=== PATIENT | female | born 1960 | race Caucasian/White ===

== ENCOUNTER 2018-06-24 08:43 | Day surgery (SDC) | payer BC ==
[2018-06-20 13:04] VITALS: BMI 30.7
[~2018-06-24 08:43] MED LIST: LACTATED RINGERS 1,000 ML IV SCH
[2018-06-24 09:20] VITALS: TEMP 98.6
[2018-06-24] MEDS ORDERED: LIDOCAINE 1% 20 ML VIAL (10MG/ML) FOR IV START INTRADERMA ONE (09:21)
[2018-06-24] MEDS ORDERED: PROPOFOL 10 MG/ML 20 ML VIAL IV ONE (10:29)
[2018-06-24 10:56] VITALS: RESP 18
--- NOTE | 2018-06-24 10:57 | P.PCN ---
Date of Procedure: 06/24/18 Procedure(s) Performed: Procedure: Colonoscopy and biopsy. Preoperative diagnosis: Screening for neoplasia. Postoperative diagnosis: 1. Sigmoid diverticulosis with no evidence of acute diverticulitis or strictures. 2. Diminutive rectal polyp biopsied but no large polyps or cancer. Preparation: HalfLytely prep. Sedation: Was provided by anesthesia. Brief clinical history: The patient is a 57-year-old female who is scheduled for this evaluation for screening for neoplasia age being her risk factor. No family history of colon cancer. She has no abdominal complaints, bleeding or anemia. This would be her first colonoscopy. Procedure: With the patient on her left lateral decubitus position and after informed consent and adequate sedation, the perianal area was inspected and it did not show any fissures or fistulas. There were no masses felt on digital rectal examination. The Olympus CF a 190L video colonoscope was then inserted in the rectum and the usual fashion and advanced to the cecum. There were several diverticular orifices seen scattered in the sigmoid but I saw no evidence of acute diverticulitis or strictures. The mucosa appeared healthy. A diminutive polyp was seen in the rectum which was biopsied but there were no large polyps or cancer. I retroflexed the endoscope in the rectum before the endoscope was withdrawn. The patient tolerated the procedure well. Plan: The patient was reassured. Discussed dietary measures. I anticipate repeating this exam in 10 years depending on the biopsy results.
[2018-06-24 11:32] VITALS: BP 119/75; PULSE 57
== END 2018-06-24 12:00 | disposition home or self-care (01) ==
LOC: ORWHC2ENDO 08:43
DX: Z12.11 Encounter for screening for malignant neoplasm of colon (principal); K62.1 Rectal polyp; K57.30 Diverticulosis of large intestine without perforation or abscess without bleeding; I10 Essential (primary) hypertension; E78.5 Hyperlipidemia, unspecified; F32.9 Major depressive disorder, single episode, unspecified; F41.9 Anxiety disorder, unspecified; F17.210 Nicotine dependence, cigarettes, uncomplicated; Z79.899 Other long term (current) drug therapy; Z90.49 Acquired absence of other specified parts of digestive tract
CPT/HCPCS: 88305; 45380; J2704

== ENCOUNTER → 2018-08-07 | Outpatient (CLI) | payer BC ==
--- NOTE | 2018-08-09 10:09 | MM ---
Reason for exam: screening (asymptomatic). Last mammogram was performed 4 years and 11 months ago. History: Patient is postmenopausal. Physical Findings: A clinical breast exam by your physician is recommended on an annual basis and results should be correlated with mammographic findings. MG 3D Screening Mammo W/Cad Bilateral CC and MLO view(s) were taken. Prior study comparison: September 04, 2013, bilateral digital screening mammo w/CAD. There are scattered fibroglandular densities. No significant changes when compared with prior studies. ASSESSMENT: Negative, BI-RAD 1 RECOMMENDATION: Routine screening mammogram of both breasts in 1 year.
== END | disposition home or self-care (01) ==
LOC: RADMAMWWP 15:07
PROVIDERS: ATTEND Family Medicine
DX: Z12.31 Encounter for screening mammogram for malignant neoplasm of breast (principal)
CPT/HCPCS: 77063; 77067

== ENCOUNTER → 2021-06-20 | Outpatient (CLI) | payer BC ==
--- NOTE | 2021-06-21 10:34 | MM ---
Reason for exam: screening (asymptomatic). Last mammogram was performed 2 years and 10 months ago. History: Patient is postmenopausal. Physical Findings: A clinical breast exam by your physician is recommended on an annual basis and results should be correlated with mammographic findings. MG 3D Screening Mammo W/Cad Bilateral CC and MLO view(s) were taken. Prior study comparison: August 07, 2018, bilateral MG 3d screening mammo w/cad. September 04, 2013, bilateral digital screening mammo w/CAD. There are scattered fibroglandular densities. There is no discrete abnormality. No significant changes when compared with prior studies. ASSESSMENT: Negative, BI-RAD 1 RECOMMENDATION: Routine screening mammogram of both breasts in 1 year.
== END | disposition home or self-care (01) ==
LOC: RADMAMWWP 15:08
PROVIDERS: ATTEND Family Medicine
DX: Z12.31 Encounter for screening mammogram for malignant neoplasm of breast (principal)
CPT/HCPCS: 77063; 77067

== ENCOUNTER → 2022-07-03 | Outpatient (CLI) | payer BC ==
[2022-07-03 18:24] LABS: Anion Gap 8.8 mmol/L (10.00-18.00); Carbon Dioxide 29.6 mmol/L (20.0-27.5); Potassium 4.1 mmol/L (3.5-5.5)
[2022-07-03 18:30] LABS: Basophils # (A) 0.06 X 10*3/uL (0.00-0.10); Eosinophils # (A) 0.14 X 10*3/uL (0.04-0.35); Eosinophils % (A) 2.3 %; Immature Grans, Automated 0.2 %; Lymphocytes # (A) 1.57 X 10*3/uL (0.90-5.00); Lymphocytes % (A) 26.1 %; MCHC 32.6 g/dL (32.0-37.0); Mean Platelet Volume 10.1 fL (9.5-12.2); Monocytes # (A) 0.38 X 10*3/uL (0.20-1.00); Monocytes % (A) 6.3 %; NRBC Per 100 WBC 0 /100 WBCS (0.0-0.0); Neutrophils # (A) 3.85 X 10*3/uL (1.80-7.70); Neutrophils % (A) 64.1 %; Platelet Count 275 X 10*3/uL (140-440); RDW 13.4 % (11.5-14.5); WBC 6.01 X 10*3/uL (4.50-10.00)
== END | disposition home or self-care (01) ==
LOC: LABPAT 11:04
PROVIDERS: ATTEND Orthopaedic Surgery Hand Surgery
DX: Z01.818 Encounter for other preprocedural examination (principal); I45.10 Unspecified right bundle-branch block; M65.332 Trigger finger, left middle finger; R94.31 Abnormal electrocardiogram [ECG] [EKG]
CPT/HCPCS: 80051; 85025; 93005

== ENCOUNTER → 2022-08-01 | Outpatient (CLI) | payer BC ==
--- NOTE | 2022-08-02 10:22 | MM ---
Reason for Exam: Screening (asymptomatic). Last mammogram was performed 1 year(s) and 2 month(s) ago. Patient History: Menarche at age 10. First Full-Term at age 13. Postmenopausal. Risk Values: Carlyn 5 year model risk: 1.1%. NCI Lifetime model risk: 4.9%. Prior Study Comparison: 09/04/2013 Bilateral Screening Mammogram, [facility]. 08/07/2018 Bilateral Screening Mammogram, [facility]. 06/20/2021 Bilateral Screening Mammogram, [facility]. Tissue Density: There are scattered fibroglandular densities. Analyzed By CAD. Overall Assessment: Benign, BI-RAD 2 Management: Screening Mammogram of both breasts in 1 year. Electronically signed and approved by: Surendra Wetzel M.D.
== END | disposition home or self-care (01) ==
LOC: RADMAMWWP 11:20
PROVIDERS: ATTEND Family Medicine
DX: Z12.31 Encounter for screening mammogram for malignant neoplasm of breast (principal); Z78.0 Asymptomatic menopausal state
CPT/HCPCS: 77063; 77067

== ENCOUNTER → 2023-10-25 | Outpatient (CLI) | payer MEDICARE ==
--- NOTE | 2023-10-25 20:08 | BD ---
EXAMINATION TYPE: Axial Bone Density DATE OF EXAM: 10/25/2023 CLINICAL HISTORY: 63 years old Female. ICD-10 CODE: M85.9 DISORDER OF BONE DENSITY AND STRUCTURE Height: 62 in Weight: 146 lbs FRAX RISK QUESTIONS: Current Tobacco Use: yes RISK FACTORS HISTORY OF: History of Wrist Fracture: lt wrist age 10 EXAM MEASUREMENTS: Bone mineral densitometry was performed using the [employer]. Bone mineral density as measured about the Lumbar spine is: ----- L1-L4(G/cm2): 1.031 T Score Values are as follows: ----- L1: -0.8 ----- L2: -1.6 ----- L3: -2.1 ----- L4: -0.7 ----- L1-L4: -1.2 Z Score Values are as follows: ----- L1: 0.8 ----- L2: -0.1 ----- L3: -0.5 ----- L4: 0.9 ----- L1-L4: 0.3 Bone mineral density baseline Bone mineral density about the R hip (g/cm2): 0.849 Bone mineral density about the L hip (g/cm2): 0.834 T Score values are as follows: -----R Neck: -1.9 -----L Neck: -2.2 -----R Total: -1.3 -----L Total: -1.4 Z Score values are as follows: -----R Neck: -0.5 -----L Neck: -0.7 -----R Total: -0.1 -----L Total: -0.2 Bone mineral density baseline FRAX%s: The graph provided illustrates a 12.2% chance for a major osteoporotic fx and a 3.3% chance f or the hips probability for fx in 10 years time. IMPRESSION: Osteopenia (T Score between -2.5 and -1). There is slightly increased risk of fracture and the patient may be considered for treatment. Re-Screen 2-5 years. NOTE: T-SCORE=SD OF THE YOUNG ADULT MEAN.
--- NOTE | 2023-10-25 21:21 | MM ---
Reason for Exam: Screening (asymptomatic). Last mammogram was performed 1 year(s) and 3 month(s) ago. Patient History: Menarche at age 10. First Full-Term at age 13. Postmenopausal. Risk Values: Carlyn 5 year model risk: 1.2%. NCI Lifetime model risk: 4.6%. Prior Study Comparison: 08/07/2018 Bilateral Screening Mammogram, [facility]. 06/20/2021 Bilateral Screening Mammogram, [facility]. 08/01/2022 Bilateral MG 3D screening mammo w/cad, [facility]. Tissue Density: There are scattered areas of fibroglandular density. Findings: Analyzed By CAD. There is no suspicious group of microcalcifications or new suspicious mass in either breast. Overall Assessment: Negative, BI-RAD 1 Management: Screening Mammogram of both breasts in 1 year. . Patient should continue monthly self-breast exams. A clinical breast exam by your physician is recommended on an annual basis. This exam should not preclude additional follow-up of suspicious palpable abnormalities. Note on Carlyn scores and lifetime risk: 1. A Carlyn score greater than 3% is considered moderate risk. If this is the case, consider specialist referral to assess eligibility for a risk reducing agent. 2. If overall lifetime risk for the development of breast cancer is 20% or higher, the patient may qualify for future screening with alternating mammogram and breast MRI. Electronically signed and approved by: Hill Mann M.D. Radiologist
== END | disposition home or self-care (01) ==
LOC: RADMAMWWP 12:44
PROVIDERS: ATTEND Family Medicine
DX: Z12.31 Encounter for screening mammogram for malignant neoplasm of breast (principal); M85.89 Other specified disorders of bone density and structure, multiple sites; Z78.0 Asymptomatic menopausal state
CPT/HCPCS: 77063; 77067; 77080

== ENCOUNTER → 2024-03-28 | Outpatient (CLI) | payer MEDICARE ==
--- NOTE | 2024-03-28 12:38 | CTL ---
EXAMINATION TYPE: CT Low Dose Lung DATE OF EXAM ORDERED: 03/28/2024 COMPARISON: None CLINICAL INDICATION: Female, 63 years old with history of Z12.2 SCREENING LUNG CA F17.210 CURRENT SMO KER; PHH, personal hx of nicotine dependence 1/2 ppd X 38 years current smoker, Lung cancer screening , History of Smoking/tobacco use. TECHNIQUE: Low dose computed tomography scan was performed through the chest at 1 mm thick sections a nd reconstructed images in multiple planes at 1 mm and [address] DLP: 80.[address] CTDI: 2.3 mGy Automated exposure control for dose reduction was used. CT DIAGNOSTIC QUALITY: Satisfactory FINDINGS: Nodules: 6 mm solid lingular pulmonary nodule abutting the fissure (series 6, 33). LUNGS: COPD: Severity: None Fibrosis: Severity: None Lymph nodes: None Other findings: None RIGHT PLEURAL SPACE: Effusion: None Calcification: None Thickening: None Pneumothorax: None LEFT PLEURAL SPACE: Effusion: None Calcification: None Thickening: None Pneumothorax: None HEART: Heart Size: Normal Coronary Calcification: None Pericardial Effusion: None OTHER FINDINGS: Upper abdomen: None Bony thorax: Mild multilevel degenerative changes of the visualized spine. Supraclavicular region: None Other: Atherosclerotic calcification of the aorta and its branches. IMPRESSION: Solid 6 mm pulmonary nodule within the lingula. CT LUNG RAD AND CT CHEST RECOMMENDATION: Lung-Rad 3 Probably Benign: 6 month follow-up LDCT. S Modifier (other clinically significant findings): None [facility], , 03/28/2024 12:36 PM
== END | disposition home or self-care (01) ==
LOC: RADCTMAIN 11:31
PROVIDERS: ATTEND Family Medicine
DX: Z12.2 Encounter for screening for malignant neoplasm of respiratory organs (principal); F17.210 Nicotine dependence, cigarettes, uncomplicated; R91.1 Solitary pulmonary nodule
CPT/HCPCS: 71271

== ENCOUNTER → 2024-06-02 | Outpatient (CLI) | payer MEDICARE ==
--- NOTE | 2024-06-03 07:11 | CA ---
Transthoracic Echo Report Name: Kortney Gómez Age: 63 Gender: F : 1960 Exam Date: 06/02/2024 15:17 Exam Location: [facility] Ht (in): 62 Wt (lb): 145 Ordering Physician: Michi Degroot DO Attending/Referring Phys: Kaela Tan PAC Transformation Consultant Chen De Leon RDCS Procedure CPT: Indications: R01.1 CARDIAC MURMUR, UNSPECIFIED Cardiac Hx: Technical Quality: Good Contrast 1: Total Dose (mL): Contrast 2: Total Dose (mL): MEASUREMENTS (Male / Female) Normal Values 2D ECHO LV Diastolic Diameter PLAX 4.8 cm 4.2 - 5.9 / 3.9 - 5.3 cm LV Systolic Diameter PLAX 3.0 cm IVS Diastolic Thickness 0.9 cm 0.6 - 1.0 / 0.6 - 0.9 cm LVPW Diastolic Thickness 0.8 cm 0.6 - 1.0 / 0.6 - 0.9 cm LV Relative Wall Thickness 0.3 RV Internal Dim ED PLAX 3.3 cm LA Systolic Diameter LX 3.2 cm 3.0 - 4.0 / 2.7 - 3.8 cm LV Diastolic Volume MOD 4C 63.6 cm??? LV Systolic Volume MOD 4C 32.7 cm??? LV Ejection Fraction MOD 4C 48.6 % LV Cardiac Index MOD 4C 1011.3 cm???/min???m??? LV Diastolic Length 4C 7.8 cm LV Systolic Length 4C 6.4 cm LV Diastolic Volume MOD 2C 62.1 cm??? LV Systolic Volume MOD 2C 34.7 cm??? LV Ejection Fraction MOD 2C 44.2 % LV Cardiac Index MOD 2C 897.2 cm???/min???m??? LV Diastolic Length 2C 7.2 cm LV Systolic Length 2C 6.0 cm LA Volume 32.4 cm??? 18 - 58 / 22 - 52 cm??? LA Volume Index 18.9 cm???/m??? 16 - 28 cm???/m??? M-MODE Aortic Root Diameter MM 3.0 cm AV Cusp Separation MM 1.7 cm DOPPLER AV Peak Velocity 145.2 cm/s AV Peak Gradient 8.4 mmHg MV Area PHT 2.9 cm??? Mitral E Point Velocity 100.9 cm/s Mitral A Point Velocity 123.6 cm/s Mitral E to A Ratio 0.8 MV Deceleration Time 258.6 ms TR Peak Velocity 219.4 cm/s TR Peak Gradient 19.3 mmHg Right Ventricular Systolic Press 23.9 mmHg FINDINGS Left Ventricle Left ventricular ejection fraction is estimated at 55-60 %. Left ventricular cavity size normal. Left ventricular wall thickness normal. Normal left ventricular wall motion. Right Ventricle Mild right ventricular dilatation. Right ventricular systolic pressure within normal limits. Right Atrium Normal right atrial size. No right atrial thrombus or mass seen. Left Atrium Normal left atrial size. No left atrial thrombus or mass present. Mitral Valve Structurally normal mitral valve. Mild mitral annular calcification. No mitral stenosis, regurgitation or prolapse. Aortic Valve Trileaflet aortic valve. No aortic valve stenosis or regurgitation. Tricuspid Valve Structurally normal tricuspid valve. Trace to mild tricuspid regurgitation. Pulmonic Valve Pulmonic valve not well visualized. No pulmonic regurgitation. Pericardium No pericardial or pleural effusion. Aorta Normal size aortic root and proximal ascending aorta. CONCLUSIONS 1. Normal left ventricular size and systolic function 2. Trace to mild tricuspid regurgitation with no evidence of pulmonary hypertension Previewed by: Dr. Camron Busby MD (Electronically Signed) Final Date: 03 June 2024 07:10
== END | disposition home or self-care (01) ==
LOC: RADECHMAIN 15:01
PROVIDERS: ATTEND Family Medicine
DX: I36.1 Nonrheumatic tricuspid (valve) insufficiency (principal); R01.1 Cardiac murmur, unspecified
CPT/HCPCS: 93306

== ENCOUNTER 2024-08-14 12:06 | Observation (INO) | payer MEDICARE ==
--- NOTE | 2024-08-14 12:54 | ED ---
Nausea/Vomiting/Diarrhea HPI - General Chief complaint: Nausea/Vomiting/Diarrhea Stated complaint: NV, dizzy Time Seen by Provider: 08/14/24 12:51 Source: patient, EMS, RN notes reviewed Mode of arrival: EMS Limitations: no limitations - History of Present Illness Initial comments: 63-year-old female presenting for dizziness x 2 days. Describes the sensation as the room is spinning. States it is worse if she moves or stands up. Also reports associated nausea and vomiting for the past 2 days. Denies focal weaknesses or numbness to his. Denies slurred speech or vision changes. Denies chest pain or shortness of breath. Denies nasal congestion, cough, fevers. History of hypertension and hyperlipidemia. Denies blood thinners. Denies history of vertigo. Reports flu a has been going around her household the past couple weeks. - Related Data Home Medications Medication Instructions Recorded Confirmed Atorvastatin [Lipitor] 40 mg PO DAILY 06/20/18 08/14/24 Sertraline [Zoloft] 100 mg PO DAILY 06/20/18 08/14/24 amLODIPine [Norvasc] 5 mg PO DAILY 07/12/22 08/14/24 hydroCHLOROthiazide 25 mg PO DAILY 07/12/22 08/14/24 Alendronate Sodium [Fosamax] 70 mg PO RFAIRE 08/14/24 08/14/24 Losartan Potassium 100 mg PO DAILY 08/14/24 08/14/24 Allergies Allergy/AdvReac Type Severity Reaction Status Date / Time No Known Allergies Allergy Verified 08/14/24 14:36 Review of Systems ROS Statement: Those systems with pertinent positive or pertinent negative responses have been documented in the HPI. ROS Other: All systems not noted in ROS Statement are negative. Past Medical History Past Medical History: Hyperlipidemia, Hypertension History of Any Multi-Drug Resistant Organisms: None Reported Past Surgical History: Cholecystectomy, Tonsillectomy Past Anesthesia/Blood Transfusion Reactions: No Reported Reaction Past Psychological History: Anxiety, Depression Smoking Status: Current every day smoker Past Alcohol Use History: Occasional Past Drug Use History: None Reported - Past Family History Brother(s) Family Medical History: Cancer Additional Family Medical History / Comment(s): MUSCLE CANCER General Exam Limitations: no limitations General appearance: alert, in no apparent distress Head exam: Present: atraumatic, normocephalic, normal inspection Eye exam: Present: normal appearance, PERRL, EOMI. Absent: scleral icterus, conjunctival injection, periorbital swelling ENT exam: Present: normal exam, mucous membranes moist, TM's normal bilaterally Neck exam: Present: normal inspection. Absent: tenderness, meningismus, lymp hadenopathy Respiratory exam: Present: normal lung sounds bilaterally. Absent: respiratory distress, wheezes, rales, rhonchi, stridor Cardiovascular Exam: Present: regular rate, normal rhythm, normal heart sounds. Absent: systolic murmur, diastolic murmur, rubs, gallop, clicks Neurological exam: Present: alert, oriented X3, CN II-XII intact Psychiatric exam: Present: normal affect, normal mood Skin exam: Present: warm, dry, intact, normal color. Absent: rash Course Vital Signs 08/14/24 08/14/24 08/14/24 12:08 13:00 14:00 Temperature 97.2 F L Pulse Rate 70 75 66 Respiratory 22 18 18 Rate Blood Pressure 138/76 122/63 135/69 O2 Sat by Pulse 100 99 98 Oximetry 08/14/24 15:39 Temperature Pulse Rate 69 Respiratory 18 Rate Blood Pressure 137/71 O2 Sat by Pulse 97 Oximetry Medical Decision Making - Medical Decision Making Was pt. sent in by a medical professional or institution (, PA, COMPUTER PATTERNMAKER, urgent care, hospital, or custodial...) When possible be specific @ -No Did you speak to anyone other than the patient for history (EMS, parent, family, police, friend...)? What history was obtained from this source @ -No Did you review nursing and triage notes (agree or disagree)? Why? @ -I reviewed and agree with nursing and triage notes Were old charts reviewed (outside hosp., previous admission, EMS record, old E KG, old radiological studies, urgent care reports/EKG's, custodial records)? Report findings @ -No old charts were reviewed Differential Diagnosis (chest pain, altered mental status, abdominal pain women, abdominal pain men, vaginal bleeding, weakness, fever, dyspnea, syncope, headache, dizziness, GI bleed, back pain, seizure, CVA, palpatations, mental health, musculoskeletal)? @ -Differential Dizziness: Benign paroxysmal positional Vertigo, Meniere's disease, otitis media, acoustic neuroma, vertebrobasilar insufficiency, cerebellar stroke, encephalitis, hypovolemic, arrhythmia, coronary artery syndrome, anemia, this is not meant to be an all-inclusive list EKG interpreted by me (3pts min.). @ -As above X-rays interpreted by me (1pt min.). @ -None done CT interpreted by me (1pt min.). @ -CT brain reveals no acute intracranial process U/S interpreted by me (1pt. min.). @ -None done What testing was considered but not performed or refused? (CT, X-rays, U/S, labs)? Why? @ -None What meds were considered but not given or refused? Why? @ -None Did you discuss the management of the patient with other professionals (professionals i.e. , PA, COMPUTER PATTERNMAKER, lab, RT, psych nurse, social media marketer, director statistical programming, teacher, third officer, pillowcase cutter)? Give summary @ -I spoke with Dr. Barrow who accepts admission for dizziness Was smoking cessation discussed for >3mins.? @ -No Was critical care preformed (if so, how long)? @ -No Were there social determinants of health that impacted care today? How? (Homelessness, low income, unemployed, alcoholism, drug addiction, transportation, low edu. Level, literacy, decrease access to med. care, halfway, rehab)? @ -No Was there de-escalation of care discussed even if they declined (Discuss DNR or withdrawal of care, Hospice)? DNR status @ -No What co-morbidities impacted this encounter? (DM, HTN, Smoking, COPD, CAD, Cancer, CVA, ARF, Chemo, Hep., AIDS, mental health diagnosis, sleep apnea, morbid obesity)? @ -None Was patient admitted / discharged? Hospital course, mention meds given and route, prescriptions, significant lab abnormalities, going to OR and other pertinent info. @ - admitted. 63-year-old female presenting for dizziness x 2 days with associated nausea/vomiting. No focal weaknesses or deficits. Neurological examination unremarkable. No nystagmus. Patient is provided with IV fluids, Zofran, Ativan, and meclizine. Lab work remarkable for mild hypokalemia at 3.2. Urinalysis remarkable for 2+ ketones. CT brain reveals no acute intracranial process. Upon reevaluation, patient reports persistent dizziness. Patient is unable to ambulate due to severe dizziness. Patient will be admitted to medicine for further evaluation of dizziness. Case was discussed with my ED attending Dr. Hernández Undiagnosed new problem with uncertain prognosis? @ -No Drug Therapy requiring intensive monitoring for toxicity (Heparin, Nitro, Ins ulin, Cardizem)? @ -No Were any procedures done? @ -No Diagnosis/symptom? @ -Dizziness Acute, or Chronic, or Acute on Chronic? @ -Acute Uncomplicated (without systemic symptoms) or Complicated (systemic symptoms)? @ -Complicated Side effects of treatment? @ -No Exacerbation, Progression, or Severe Exacerbation? @ -No Poses a threat to life or bodily function? How? (Chest pain, [place], [place], pneumonia, PE, COPD, DKA, ARF, appy, cholecystitis, CVA, Diverticulitis, Homicidal, Suicidal, threat to staff... and all critical care pts) @ -Possibly - Lab Data Result diagrams: 08/14/24 13:19 08/14/24 13:19 Lab Results 08/14/24 08/14/24 08/14/24 Range/Units 13:19 13:19 13:19 WBC 8.1 (3.8-10.6) k/uL RBC 5.05 (3.80-5.40) m/uL Hgb 14.6 (11.4-16.0) gm/dL Hct 44.7 (34.0-46.0) % MCV 88.5 (80.0-100.0) fL MCH 29.0 (25.0-35.0) pg MCHC 32.7 (31.0-37.0) g/dL RDW 12.9 (11.5-15.5) % Plt Count 231 (150-450) k/uL MPV 7.8 Neutrophils % 82 % Lymphocytes % 11 % Monocytes % 5 % Eosinophils % 1 % Basophils % 1 % Neutrophils # 6.6 (1.3-7.7) k/uL Lymphocytes # 0.9 L (1.0-4.8) k/uL Monocytes # 0.4 (0-1.0) k/uL Eosinophils # 0.1 (0-0.7) k/uL Basophils # 0.0 (0-0.2) k/uL PT (10.0-12.5) sec INR (<1.2) APTT (22.0-30.0) sec Sodium 139 (137-145) mmol/L Potassium 3.2 L (3.5-5.1) mmol/L Chloride 105 (98-107) mmol/L Carbon Dioxide 25 (22-30) mmol/L Anion Gap 9 mmol/L BUN 18 H (7-17) mg/dL Creatinine 0.61 (0.52-1.04) mg/dL Est GFR (CKD-EPI)AfAm >90 (>60 ml/min/1.73 sqM) Est GFR (CKD-EPI)NonAf >90 (>60 ml/min/1.73 sqM) Glucose 110 H (74-99) mg/dL Plasma Lactic Acid [place] (0.7-2.0) mmol/L Calcium 9.8 (8.4-10.2) mg/dL Magnesium 2.2 (1.6-2.3) mg/dL Total Bilirubin 0.7 (0.2-1.3) mg/dL AST 23 (14-36) U/L ALT 15 (4-34) U/L Alkaline Phosphatase 101 (38-126) U/L Troponin I (0.000-0.034) ng/mL Total Protein 6.5 (6.3-8.2) g/dL Albumin 3.9 (3.5-5.0) g/dL Urine Color Urine Appearance (Clear) Urine pH (5.0-8.0) Ur Specific [place] (1.001-1.035) Urine Protein (Negative) Urine Glucose (UA) (Negative) Urine Ketones (Negative) Urine Blood (Negative) Urine Nitrite (Negative) Urine Bilirubin (Negative) Urine Urobilinogen (<2.0) mg/dL Ur Leukocyte Esterase (Negative) Urine RBC (0-5) /hpf Urine WBC (0-5) /hpf Ur Squamous Epith Cells (0-4) /hpf Amorphous Sediment (None) /hpf Urine Mucus (None) /hpf Influenza Type A (PCR) Not Detected (Not Detectd) Influenza Type B (PCR) Not Detected (Not Detectd) RSV (PCR) Not Detected (Not Detectd) SARS-CoV-2 (PCR) Not Detected (Not Detectd) 08/14/24 08/14/24 08/14/24 Range/Units 13:19 13:19 13:19 WBC (3.8-10.6) k/uL RBC (3.80-5.40) m/uL Hgb (11.4-16.0) gm/dL Hct (34.0-46.0) % MCV (80.0-100.0) fL MCH (25.0-35.0) pg MCHC (31.0-37.0) g/dL RDW (11.5-15.5) % Plt Count (150-450) k/uL MPV Neutrophils % % Lymphocytes % % Monocytes % % Eosinophils % % Basophils % % Neutrophils # (1.3-7.7) k/uL Lymphocytes # (1.0-4.8) k/uL Monocytes # (0-1.0) k/uL Eosinophils # (0-0.7) k/uL Basophils # (0-0.2) k/uL PT 11.3 (10.0-12.5) sec INR 1.0 (<1.2) APTT 19.2 L (22.0-30.0) sec Sodium (137-145) mmol/L Potassium (3.5-5.1) mmol/L Chloride (98-107) mmol/L Carbon Dioxide (22-30) mmol/L Anion Gap mmol/L BUN (7-17) mg/dL Creatinine (0.52-1.04) mg/dL Est GFR (CKD-EPI)AfAm (>60 ml/min/1.73 sqM) Est GFR (CKD-EPI)NonAf (>60 ml/min/1.73 sqM) Glucose (74-99) mg/dL Plasma Lactic Acid [place] 1.8 (0.7-2.0) mmol/L Calcium (8.4-10.2) mg/dL Magnesium (1.6-2.3) mg/dL Total Bilirubin (0.2-1.3) mg/dL AST (14-36) U/L ALT (4-34) U/L Alkaline Phosphatase (38-126) U/L Troponin I (0.000-0.034) ng/mL Total Protein (6.3-8.2) g/dL Albumin (3.5-5.0) g/dL Urine Color Yellow Urine Appearance Cloudy H (Clear) Urine pH 7.5 (5.0-8.0) Ur Specific [place] 1.028 (1.001-1.035) Urine Protein 1+ H (Negative) Urine Glucose (UA) Negative (Negative) Urine Ketones 2+ H (Negative) Urine Blood Negative (Negative) Urine Nitrite Negative (Negative) Urine Bilirubin Negative (Negative) Urine Urobilinogen 4.0 (<2.0) mg/dL Ur Leukocyte Esterase Negative (Negative) Urine RBC 9 H (0-5) /hpf Urine WBC 3 (0-5) /hpf Ur Squamous Epith Cells 1 (0-4) /hpf Amorphous Sediment Rare H (None) /hpf Urine Mucus Many H (None) /hpf Influenza Type A (PCR) (Not Detectd) Influenza Type B (PCR) (Not Detectd) RSV (PCR) (Not Detectd) SARS-CoV-2 (PCR) (Not Detectd) 08/14/24 Range/Units 13:19 WBC (3.8-10.6) k/uL RBC (3.80-5.40) m/uL Hgb (11.4-16.0) gm/dL Hct (34.0-46.0) % MCV (80.0-100.0) fL MCH (25.0-35.0) pg MCHC (31.0-37.0) g/dL RDW (11.5-15.5) % Plt Count (150-450) k/uL MPV Neutrophils % % Lymphocytes % % Monocytes % % Eosinophils % % Basophils % % Neutrophils # (1.3-7.7) k/uL Lymphocytes # (1.0-4.8) k/uL Monocytes # (0-1.0) k/uL Eosinophils # (0-0.7) k/uL Basophils # (0-0.2) k/uL PT (10.0-12.5) sec INR (<1.2) APTT (22.0-30.0) sec Sodium (137-145) mmol/L Potassium (3.5-5.1) mmol/L Chloride (98-107) mmol/L Carbon Dioxide (22-30) mmol/L Anion Gap mmol/L BUN (7-17) mg/dL Creatinine (0.52-1.04) mg/dL Est GFR (CKD-EPI)AfAm (>60 ml/min/1.73 sqM) Est GFR (CKD-EPI)NonAf (>60 ml/min/1.73 sqM) Glucose (74-99) mg/dL Plasma Lactic Acid [place] (0.7-2.0) mmol/L Calcium (8.4-10.2) mg/dL Magnesium (1.6-2.3) mg/dL Total Bilirubin (0.2-1.3) mg/dL AST (14-36) U/L ALT (4-34) U/L Alkaline Phosphatase (38-126) U/L Troponin I 0.013 (0.000-0.034) ng/mL Total Protein (6.3-8.2) g/dL Albumin (3.5-5.0) g/dL Urine Color Urine Appearance (Clear) Urine pH (5.0-8.0) Ur Specific [place] (1.001-1.035) Urine Protein (Negative) Urine Glucose (UA) (Negative) Urine Ketones (Negative) Urine Blood (Negative) Urine Nitrite (Negative) Urine Bilirubin (Negative) Urine Urobilinogen (<2.0) mg/dL Ur Leukocyte Esterase (Negative) Urine RBC (0-5) /hpf Urine WBC (0-5) /hpf Ur Squamous Epith Cells (0-4) /hpf Amorphous Sediment (None) /hpf Urine Mucus (None) /hpf Influenza Type A (PCR) (Not Detectd) Influenza Type B (PCR) (Not Detectd) RSV (PCR) (Not Detectd) SARS-CoV-2 (PCR) (Not Detectd) - EKG Data -: EKG Interpreted by Tx EKG Comments: EKG normal sinus rhythm with no acute ST changes. Ventricular rate 63 bpm, DE interval 177, QRS duration 112, QT/QTc 427/435 Disposition Clinical Impression: Dizziness Disposition: ADMITTED IP TO THIS HOSP Referrals: Michi Degroot DO [Primary Care Provider] - 1-2 days Time of Disposition: 16:41
[2024-08-14 13:35] LABS: Basophils % (A) 1 %; Eosinophils # (A) 0.1 k/uL (0-0.7); Eosinophils % (A) 1 %; HCT 44.7 % (34.0-46.0); HGB 14.6 gm/dL (11.4-16.0); Lymphocytes # (A) 0.9 k/uL (1.0-4.8); Lymphocytes % (A) 11 %; MCHC 32.7 g/dL (31.0-37.0); MCV 88.5 fL (80.0-100.0); Mean Platelet Volume 7.8; Monocytes # (A) 0.4 k/uL (0-1.0); Monocytes % (A) 5 %; Neutrophils # (A) 6.6 k/uL (1.3-7.7); Neutrophils % (A) 82 %; Platelet Count 231 k/uL (150-450); RBC 5.05 m/uL (3.80-5.40); RDW 12.9 % (11.5-15.5); WBC 8.1 k/uL (3.8-10.6)
[2024-08-14 13:51] LABS: Prothrombin Time 11.3 sec (10.0-12.5)
[2024-08-14 13:52] LABS: Amorphous Sediment,Urine Rare /hpf; Appearance,Urine Cloudy (Clear); Bilirubin,Urine Negative (Negative); Blood,Urine Negative (Negative); Color,Urine Yellow; Glucose,Urine (UA) Negative (Negative); Ketones,Urine 2+ (Negative); Leukocyte Esterase,Urine Negative (Negative); Mucus,Urine Many /hpf; Nitrite,Urine Negative (Negative); PH, Urine 7.5 (5.0-8.0); Protein,Urine 1+ (Negative); RBC,Urine 9 /hpf (0-5); Specific Gravity,Urine 1.028 (1.001-1.035); Squamous Epithelial Cell,Urine 1 /hpf (0-4); WBC,Urine 3 /hpf (0-5)
[2024-08-14 13:54] LABS: Partial Thromboplastin Time 19.2 sec (22.0-30.0)
[2024-08-14] MEDS: SODIUM CHLORIDE 0.9% 1,000 ML IV STA (13:56)
[2024-08-14] MEDS: ONDANSETRON 4 MG/2 ML VIAL IVP STA (13:56)
[2024-08-14] MEDS: MECLIZINE 12.5 MG TAB PO STA (13:57)
[2024-08-14 13:59] LABS: ALT 15 U/L (4-34); AST 23 U/L (14-36); African American GFR (CKD) >90 (>60 ml/min/1.73 sqM); Albumin 3.9 g/dL (3.5-5.0); Alkaline Phosphatase 101 U/L (38-126); Anion Gap 9 mmol/L; Blood Urea Nitrogen 18 mg/dL (7-17); Calcium 9.8 mg/dL (8.4-10.2); Carbon Dioxide 25 mmol/L (22-30); Chloride 105 mmol/L (98-107); Glucose 110 mg/dL (74-99); Magnesium 2.2 mg/dL (1.6-2.3); Non-African American GFR(CKD) >90 (>60 ml/min/1.73 sqM); Potassium 3.2 mmol/L (3.5-5.1); Sodium 139 mmol/L (137-145); Total Bilirubin 0.7 mg/dL (0.2-1.3); Total Protein 6.5 g/dL (6.3-8.2)
[2024-08-14 14:09] LABS: Influenza A Not Detected (Not Detectd); Influenza B Not Detected (Not Detectd); RSV Not Detected (Not Detectd)
--- NOTE | 2024-08-14 14:29 | CT ---
EXAMINATION TYPE: CT brain wo con DATE OF EXAM: 08/14/2024 COMPARISON: None CLINICAL INDICATION: Female, 63 years old with history of dizziness; PHH, Dizziness. CT DLP: 1097.1 mGycm Automated exposure control for dose reduction was used. Findings: The ventricles, basal cisterns and sulci over the convexities are within normal limits and there is n o mass effect or shift of midline structures. No abnormal density is seen throughout the brain parenchyma and there is no acute intra or extra-axia l hemorrhage. The posterior fossa including the brainstem, fourth ventricle and cerebellar pontine angles appear no rmal. Intraorbital contents appear normal and symmetric. Visualized paranasal sinuses and mastoid air cells are well aerated. The calvarium is intact. IMPRESSION: No significant abnormality seen. There is no acute bleed or mass effect. [facility], , 08/14/2024 2:27 PM
[2024-08-14] MEDS: LORazepam 2 MG/ML INJ IV STA (15:42)
[2024-08-14] MEDS ORDERED: NALOXONE 0.4 MG/ML 1 ML VIAL IV PRN ×2 (16:30→17:53)
[2024-08-14] MEDS ORDERED: ONDANSETRON 4 MG/2 ML VIAL IVP PRN (16:30)
[2024-08-14] MEDS ORDERED: HYDROmorphone 1 MG/ML 1 ML SYRINGE IVP PRN (16:30)
[2024-08-14] MEDS ORDERED: KETOROLAC 15 MG/ML 1 ML VIAL IVP PRN (16:30)
[2024-08-14] MEDS: SODIUM CHLORIDE 0.9% 1,000 ML IV SCH (17:28)
[2024-08-14] MEDS: POTASSIUM CHLORIDE ER 20 MEQ TAB.ER PO STA (17:28)
[2024-08-14] MEDS: MECLIZINE 25 MG TAB PO PRN (17:32)
[2024-08-14] MEDS: ACETAMINOPHEN TAB 325 MG TAB PO PRN (17:32)
--- NOTE | 2024-08-14 17:58 | P.HPIM ---
History of Present Illness H&P Date: 08/14/24 History of present illness; 63-year-old female with PMH of hypertension, hyperlipidemia, osteopenia, anxiety/depression and panic attacks presents to the ED with complaints of 3-day history of dizziness, with a sensation of the room being spinning which had associated nausea. Additionally, she has vomited which she estimates to be 67 times, all of which today. She states that when she is lying down the dizziness subsides some, however notes that it is always present at least a little bit. Any movement of her head or body position as a whole resulted in worsening of the dizziness and increase in her nausea. She denies any focal weakness, numbness, slurred speech or vision changes. She denies any known history of vertigo. Labratory review: -WBCs 8.1, hemoglobin 14.6, hematocrit 44.7, platelet 231; sodium 139, potassium 3.2, BUN 18, creatinine 0.61, lactic acid 1.8, calcium 9.8, magnesium 2.2, total bilirubin 0.7, AST 23, ALT 15, alkaline phosphatase 101, troponin 0.013 -Respiratory viral panel all negative -UA: Unremarkable Imaging: -CT head done showed no acute intracranial process -EKG done in the ER showed heart rate of 63, no ST segment elevation or depression seen, no T-wave inversions seen. Vitals: -On arrival: Blood pressure 138/76, heart rate 70, respiratory rate 22 6 SpO2 100% on room air -Most recently: Blood pressure 137/71, heart rate 69, respiratory rate 18, SpO2 97% room air Patient admitted to internal medicine service REVIEW OF SYSTEMS: Pertinent positives and negatives noted in HPI. The rest of the 14-point review of systems is negative. Physical Exam: General: nontoxic, no distress, poor dentition Derm: warm, dry, intact Head: atraumatic, normocephalic, symmetric Eyes: EOMI, anicteric sclera, horizontal nystagmus Mouth: no lip lesion, mucus membranes moist Cardiovascular: S1 S2 reg, no murmur, rubs, or gallops Lungs: CTA bilateral, no rales, no accessory muscle use Abdominal: soft, non-tender to palpataion, no appreciable organomegaly Extremities: no gross muscle atrophy, no edema, no contractures Neuro: Alert, Oriented, CNII-XII grossly intact, gait normal Psych: well appearing, appropriate affect Assessment and plan 63-year-old female with PMH of hypertension, hyperlipidemia, osteopenia, anxiety /depression and a history of panic attacks presents to the ED with complaints of 3-day history of the sensation of the room being spinning, associated with nausea and vomiting today. #BPPV #Persistent nausea vomiting -Received 50 mg p.o. meclizine once while in the ED -Continue with meclizine 25 mg every 8 hours -Zofran IV as needed #Hypokalemia -Initial potassium showed to be 3.2 on arrival -Patient given 40 mEq potassium chloride p.o. -Monitor BMP Chronic: Hypertension Dyslipidemia Anxiety/depression GI prophylaxis: None DVT prophylaxis: None CODE STATUS: Full code Discussed with: Patient Anticipated discharge place: Pending clinical course Dictation was produced using [employer] dictation software. please excuse any grammatical, word or spelling errors. Juve Jones MD PGY-1 IM The patient is admitted with an anticipated less than 2 midnight stay as observation status for evaluation of peripheral vertigo. A total of 65 minutes was spent on the care of this complex patient more than 50% of the time was spent in counseling and care coordination. I have seen and evaluated the patient today. Discussed with the resident and agree with the residents finding and plan as documented in the resident's note. Changes highlighted in blue font. Past Medical History Past Medical History: Hyperlipidemia, Hypertension History of Any Multi-Drug Resistant Organisms: None Reported Past Surgical History: Cholecystectomy, Tonsillectomy Past Anesthesia/Blood Transfusion Reactions: No Reported Reaction Past Psychological History: Anxiety, Depression Smoking Status: Current every day smoker Past Alcohol Use History: Occasional Past Drug Use History: None Reported - Past Family History Brother(s) Family Medical History: Cancer Additional Family Medical History / Comment(s): MUSCLE CANCER Medications and Allergies Home Medications Medication Instructions Recorded Confirmed Type Atorvastatin [Lipitor] 40 mg PO DAILY 06/20/18 08/14/24 History Sertraline [Zoloft] 100 mg PO DAILY 06/20/18 08/14/24 History amLODIPine [Norvasc] 5 mg PO DAILY 07/12/22 08/14/24 History hydroCHLOROthiazide 25 mg PO DAILY 07/12/22 08/14/24 History Alendronate Sodium [Fosamax] 70 mg PO FRAIRE 08/14/24 08/14/24 History Losartan Potassium 100 mg PO DAILY 08/14/24 08/14/24 History Allergies Allergy/AdvReac Type Severity Reaction Status Date / Time No Known Allergies Allergy Verified 08/14/24 14:36 Physical Exam Vitals: Vital Signs Temp Pulse Resp BP Pulse Ox 08/14/24 15:39 69 18 137/71 97 08/14/24 14:00 66 18 135/69 98 08/14/24 13:00 75 18 122/63 99 08/14/24 12:08 97.2 F L 70 22 138/76 100 Intake and Output 08/14/24 08/14/24 08/14/24 06:59 14:59 22:59 Other: Weight 68.039 kg Results CBC & Chem 7: 08/14/24 13:19 08/14/24 13:19 Labs: Abnormal Lab Results - Last 24 Hours (Table) 08/14/24 08/14/24 08/14/24 Range/Units 13:19 13:19 13:19 Lymphocytes # 0.9 L (1.0-4.8) k/uL APTT 19.2 L (22.0-30.0) sec Potassium 3.2 L (3.5-5.1) mmol/L BUN 18 H (7-17) mg/dL Glucose 110 H (74-99) mg/dL Urine Appearance (Clear) Urine Protein (Negative) Urine Ketones (Negative) Urine RBC (0-5) /hpf Amorphous Sediment (None) /hpf Urine Mucus (None) /hpf 08/14/24 Range/Units 13:19 Lymphocytes # (1.0-4.8) k/uL APTT (22.0-30.0) sec Potassium (3.5-5.1) mmol/L BUN (7-17) mg/dL Glucose (74-99) mg/dL Urine Appearance Cloudy H (Clear) Urine Protein 1+ H (Negative) Urine Ketones 2+ H (Negative) Urine RBC 9 H (0-5) /hpf Amorphous Sediment Rare H (None) /hpf Urine Mucus Many H (None) /hpf
[2024-08-14] MEDS: MECLIZINE 25 MG TAB PO SCH (23:24)
[2024-08-15] MEDS: SERTRALINE 100 MG TAB PO SCH (08:22)
[2024-08-15] MEDS: hydroCHLOROthiazide 25 MG TAB PO SCH (08:22)
[2024-08-15] MEDS: ATORVASTATIN 40 MG TAB PO SCH (08:22)
[2024-08-15] MEDS: LOSARTAN 50 MG TAB PO SCH (08:22)
[2024-08-15] MEDS: amLODIPine 5 MG TAB PO SCH (08:22)
[2024-08-15 08:28] LABS: Blood Urea Nitrogen 14.4 mg/dL (9.0-27.0); Calcium 9.4 mg/dL (8.7-10.3); Carbon Dioxide 26.6 mmol/L (21.6-31.8); Chloride 108 mmol/L (96-109); Glucose 88 mg/dL (70-110); Magnesium 2.3 mg/dL (1.5-2.4); Sodium 143 mmol/L (135-145)
[2024-08-15 09:50] VITALS: TEMP 98
[2024-08-15 11:06] VITALS: BP 146/79; PULSE 86; RESP 18
--- NOTE | 2024-08-15 11:47 | P.DS ---
Providers Date of admission: 08/14/24 17:54 Expected date of discharge: 08/15/24 Attending physician: Roland Barrow [facility] Course: Discharge diagnoses; #BPPV #Persistent nausea vomiting #Hypokalemia #Hypertension #Dyslipidemia #Anxiety/depression Hospital course; 63-year-old female with PMH of hypertension, hyperlipidemia, osteopenia, anxiety/depression and panic attacks presents to the ED with complaints of 3-day history of dizziness, with a sensation of the room being spinning which had associated nausea. Additionally, she has vomited which she estimates to be 67 times, all of which today. During her stay she received medication, 50 mg Antivert, to relieve some of her symptoms while in the ED and then she was started on 25 mg Antivert every 6 hours as needed. Additionally, she underwent a CT scan of her brain which showed no significant abnormalities. Discussed with the patient, and she verbalized understanding, the most likely cause of her symptoms being BPPV. She was given a handout with instructions of gutierrez maneuvers she can do to help alleviate the symptoms, however if they persist to follow-up with her primary care physician within 1-2 days of discharge. She will be sent home with a prescription for the medication is assisted with her symptoms while here in the hospital. She is agreeable to this plan and excited for the opportunity to go home today. Physical Exam: General: nontoxic, no distress, appears at stated age Derm: warm, dry, intact Head: atraumatic, normocephalic, symmetric Eyes: EOMI, anicteric sclera, horizontal nystagmus is noted Mouth: no lip lesion, mucus membranes moist Cardiovascular: S1 S2 reg, no murmur, rubs, or gallops Lungs: CTA bilateral, no rales, no accessory muscle use Abdominal: soft, non-tender to palpataion, no appreciable organomegaly Extremities: no gross muscle atrophy, no edema, no contractures Neuro: Alert, Oriented, CNII-XII grossly intact, gait normal Psych: well appearing, appropriate affect Dictation was produced using [employer] dictation software. please excuse any grammatical, word or spelling errors. Juve Jones MD PGY-1 IM A total of 38 minutes of time were spent preparing this complex discharge summary. Patient was discharged on 08/15/2024 at 926. I have seen and evaluated the patient today. Discussed with the resident and ag ree with the residents finding and plan as documented in the resident's note. Changes highlighted in blue font. Plan - Discharge Summary New Discharge Prescriptions: New Meclizine [Antivert] 25 mg PO Q8HR PRN #21 tab PRN Reason: Vertigo Continue Atorvastatin [Lipitor] 40 mg PO DAILY Sertraline [Zoloft] 100 mg PO DAILY Losartan Potassium 100 mg PO DAILY amLODIPine [Norvasc] 5 mg PO DAILY hydroCHLOROthiazide 25 mg PO DAILY Alendronate Sodium [Fosamax] 70 mg PO FRAIRE Discharge Medication List Atorvastatin [Lipitor] 40 mg PO DAILY 06/20/18 [History] Sertraline [Zoloft] 100 mg PO DAILY 06/20/18 [History] amLODIPine [Norvasc] 5 mg PO DAILY 07/12/22 [History] hydroCHLOROthiazide 25 mg PO DAILY 07/12/22 [History] Alendronate Sodium [Fosamax] 70 mg PO FRAIRE 08/14/24 [History] Losartan Potassium 100 mg PO DAILY 08/14/24 [History] Meclizine [Antivert] 25 mg PO Q8HR PRN #21 tab 08/15/24 [Rx] Follow up Appointment(s)/Referral(s): Michi Degroot DO [Primary Care Provider] - 1-2 days Patient Instructions/Handouts: Benign Paroxysmal Positional Vertigo (DC) Discharge Disposition: HOME SELF-CARE
== END 2024-08-15 11:05 | disposition home or self-care (01) ==
LOC: EC 12:06 → 6NMEDSUR 17:54
PROVIDERS: ADMIT Student in an Organized Health Care Education/Training Program; ATTEND Student in an Organized Health Care Education/Training Program
DX: H81.10 Benign paroxysmal vertigo, unspecified ear (principal); R11.2 Nausea with vomiting, unspecified; E87.6 Hypokalemia; I10 Essential (primary) hypertension; E78.5 Hyperlipidemia, unspecified; F32.A Depression, unspecified; F41.9 Anxiety disorder, unspecified; F17.200 Nicotine dependence, unspecified, uncomplicated; Z11.52 Encounter for screening for COVID-19; Z79.83 Long term (current) use of bisphosphonates; Z79.899 Other long term (current) drug therapy
CPT/HCPCS: 96361; 96374; 96375; 99285; 36415; 93005; 80053; 80048; 83605; 83735 ×2; 84484; 85025; 85610; 85730; 81001; 87636; 70450; G0378 ×2; J2060; J2405

== ENCOUNTER → 2024-12-17 | Outpatient (CLI) | payer MEDICARE ==
--- NOTE | 2024-12-17 11:06 | CTL ---
EXAMINATION TYPE: CT Low Dose Lung DATE OF EXAM ORDERED: 12/17/2024 COMPARISON: CT Low Dose Lung 03/28/2024 CLINICAL INDICATION: Female, 64 years old with history of Z12.31 BR CA SCR Z12.2 LUNG CA SCR Z78.891 FORMER; [facility], [facility], Lung cancer screening, History of Smoking/tobacco use. TECHNIQUE: Low dose computed tomography scan was performed through the chest at 1 mm thick sections a nd reconstructed images in multiple planes at 1 mm and [address] DLP: [address] CTDI: 2.23 mGy Automated exposure control for dose reduction was used. CT DIAGNOSTIC QUALITY: Satisfactory FINDINGS: Nodules: Stable 5.7 mm solid pulmonary nodule along the left major fissure in the lingula (series 8, image 35) . No new or enlarging pulmonary nodules. LUNGS: COPD: Severity: None Fibrosis: Severity: None Lymph nodes: None Other findings: None RIGHT PLEURAL SPACE: Effusion: None Calcification: None Thickening: None Pneumothorax: None LEFT PLEURAL SPACE: Effusion: None Calcification: None Thickening: None Pneumothorax: None HEART: Heart Size: Normal Coronary Calcification: None Pericardial Effusion: None OTHER FINDINGS: Upper abdomen: None Bony thorax: Mild multilevel degenerative changes of the visualized spine. Grade 1 retrolisthesis of T12 on L1. Supraclavicular region: None Other: Atherosclerotic calcification of the aorta and its branches. IMPRESSION: Stable lingular 5.7 mm pulmonary nodule. No new or enlarging pulmonary nodules. CT LUNG RAD AND CT CHEST RECOMMENDATION: Lung-Rad 2 Benign Appearance or Behavior: Continue annual sc reening with LDCT in 12 months. S Modifier (other clinically significant findings): None [facility], , 12/17/2024 11:04 AM
--- NOTE | 2024-12-17 15:32 | MM ---
Reason for Exam: Screening (asymptomatic). Last mammogram was performed 1 year(s) and 1 month(s) ago. Patient History: Menarche at age 10. First Full-Term at age 13. Postmenopausal. Risk Values: Carlyn 5 year model risk: 1.2%. NCI Lifetime model risk: 4.4%. Prior Study Comparison: 06/20/2021 Bilateral Screening Mammogram, [facility]. 08/01/2022 Bilateral MG 3D screening mammo w/cad, [facility]. 10/25/2023 Bilateral MG 3D screening mammo w/cad, [facility]. Tissue Density: There are scattered areas of fibroglandular density. Findings: Analyzed By CAD. There is no suspicious group of microcalcifications or new suspicious mass in either breast. Overall Assessment: Negative, BI-RAD 1 Management: Screening Mammogram of both breasts in 1 year. Patient should continue monthly self-breast exams. A clinical breast exam by your physician is recommended on an annual basis. This exam should not preclude additional follow-up of suspicious palpable abnormalities. Note on Carlyn scores and lifetime risk: 1. A Carlyn score greater than 3% is considered moderate risk. If this is the case, consider specialist referral to assess eligibility for a risk reducing agent. 2. If overall lifetime risk for the development of breast cancer is 20% or higher, the patient may qualify for future screening with alternating mammogram and breast MRI. [facility], , 12/17/2024 3:29 PM. Electronically signed and approved by: Hill Mann M.D. Radiologist
== END | disposition home or self-care (01) ==
LOC: RADCTMAIN 08:41
PROVIDERS: ATTEND Family Medicine
DX: Z12.31 Encounter for screening mammogram for malignant neoplasm of breast (principal); Z12.2 Encounter for screening for malignant neoplasm of respiratory organs; R92.323 Mammographic fibroglandular density, bilateral breasts; R91.1 Solitary pulmonary nodule; Z78.0 Asymptomatic menopausal state; Z87.891 Personal history of nicotine dependence
CPT/HCPCS: 71271; 77063; 77067